=== PATIENT | female | born 1965 | race Two or more races ===

== ENCOUNTER 2021-03-31 04:45 | Day surgery (SDC) | payer OTHER ==
[~2021-03-31 04:45] MED LIST: PEPCID AC20 MG PO; PRILOSEC OTC20 MG PO; PROMETRIUM200 MG PO; TRAMADOL HCL-AP1 TAB PO
== END 2021-03-31 12:30 | disposition home or self-care (01) ==
LOC: CIR.AMB 04:45
PROVIDERS: ATTEND Specialist
DX: K80.10 Calculus of gallbladder with chronic cholecystitis without obstruction (principal); Z20.822 Contact with and (suspected) exposure to COVID-19